=== PATIENT | female | born 1970 | race Caucasian/White ===

== ENCOUNTER 2019-05-16 09:31 | Emergency (ER) | payer OTHER, SELFPAY ==
[2019-05-16 09:33] VITALS: BP 158/105; PULSE 68; RESP 14; TEMP 36.8; O2SAT 98; BMI 33.3
--- NOTE | 2019-05-16 09:48 | CT_ITS ---
STUDY: CT ABDOMEN AND PELVIS WITHOUT CONTRAST REASON FOR EXAM: Female, 48 years old. Left flank pain RADIATION DOSAGE (If Supplied By Facility): CTDIvol = ( 17.68 ) mGy, DLP = ( 910.03 ) mGycm TECHNIQUE: Transaxial images were obtained from the dome of the diaphragm to the symphysis pubis without oral contrast, and without intravenous contrast. Sagittal and coronal images were reconstructed. Individualized dose optimization techniques were used for this CT. COMPARISON: None. FINDINGS: The visualized lung bases are unremarkable. The visualized portions of the heart are within normal limits. Normal liver. There is non-visualization of the gallbladder, which may be secondary to either contraction or a prior cholecystectomy. Normal spleen. Normal pancreas. Normal bilateral adrenal glands. There is a 2 mm stone in the inferior pole of the right kidney there is no evidence of hydronephrosis. The stone in the lower pole of the left kidney measuring 6.6 x 5.1 mm. There is mild left hydronephrosis. There is mild prominence of the proximal and mid ureter with minimal stranding. There is a stone within the distal left ureter at the ureterovesicular junction measuring 4.5 x 5.1 mm. Normal visualized stomach. There multiple mildly distended loops of small bowel. Normal colon. The appendix is visualized and appears normal. Normal abdominal aorta. Normal inferior vena cava. Normal retroperitoneum. Normal urinary bladder. There is a visualized right side tubal ligation clip. There is a diastases of the rectus muscle and atrophy. There is a small fatty umbilical hernia. There are diffuse degenerative changes of the visualized lumbar spine. CT/Abdomen/Pelvis without Cont IMPRESSION: 0.5 x 5.1 mm stone distal left ureter at the ureter vesicular junction. Mild left hydronephrosis. Bilateral renal stones. No evidence of right-sided hydronephrosis Status post cholecystectomy Mild small bowel ileus. Post right side tubal ligation. Electronically Signed: Esha Bueno MD at 10:59 EDT Tel , Service support ,
--- NOTE | 2019-05-16 09:49 | ED.VIS.GEN ---
History of Present Illness Chief Complaint: Flank Pain Informant: Patient Onset: Today Context: Gradual Onset Timing: Waxes and wanes Current Severity: Mild Maximum Severity: Moderate Narrative: Patient presents with left flank/left lower back pain that started this morning. Pain became so severe she did have nausea and vomiting at home. She has not noted dysuria. She denies blood with her bowel movements. She has been lifting more than normal recently, but does not member injuring her back. Past Medical History - Allergies and Home Meds Allergies/Adverse Reactions: Allergies azithromycin Allergy (Verified 05/16/19 09:33) Other strawberry Adverse Reaction (Verified 05/16/19 09:33) Other Primary Care Physician: Rafael Pedraza MD [NON-STAFF] - Surgical History: cholecystectomy, - - Tubal ligation Lives: With Family Smoking Status: Never smoker Review of Systems General: Denies: Chills, Fever Eyes: Denies: Visual changes - bilaterally ENT: Denies: Bilateral ear pain Cardiovascular: Denies: Chest pain Respiratory: Denies: Dyspnea Gastrointestinal: Reports: Abdominal pain, Nausea, Vomiting Genitourinary: Denies: Dysuria, Hematuria Musculoskeletal: Reports: Back pain Neurological: Denies: Headache Endocrine: Denies: Polyuria, Polydipsia Hematologic: Denies: Easy bruising Allergy: Denies: Uticaria Physical Exam Vital Signs/Narrative: Vital Signs Temp Pulse Resp BP Pulse Ox 05/16/19 09:33 98.2 F 68 14 158/105 H 98 Inital Vital Signs reviewed: Yes General: Well nourished, Well developed Head: Normocephalic ENT: Moist mucous membranes Cardiovascular: Regular rate, Regular rhythm Respiratory: No distress, CTA bilaterally Abdomen: Soft, Nontender, Hypoactive bowel sounds Back: - - Tenderness in the left lower lumbar paraspinal muscles. Extremities: Nontender, No edema Skin: Normal color Neurological: Alert, Oriented x3 Psychological: Normal affect Diagnostic/Tx/Re-eval Impressions Abdomen/Pelvis CT 05/16/19 09:48 IMPRESSION: 0.5 x 5.1 mm stone distal left ureter at the ureter vesicular junction. Mild left hydronephrosis. Bilateral renal stones. No evidence of right-sided hydronephrosis Status post cholecystectomy Mild small bowel ileus. Post right side tubal ligation. Electronically Signed: Esha Bueno MD at 10:59 EDT Tel , Service support , 05/16/19 09:48 Abdomen/Pelvis without Cont [CT] Stat Laboratory Results 05/16/19 05/16/19 05/16/19 09:06 10:10 10:10 WBC 7.9 RBC 4.47 Hgb 13.6 Hct 40.5 MCV 90.6 MCH 30.4 MCHC 33.6 RDW Std Deviation 38.5 RDW Coeff of Jax 11.7 Plt Count 275 MPV 9.9 Immature Gran % (Auto) 0.400 Neut % (Auto) 73.9 H Lymph % (Auto) 14.8 L [place] % (Auto) 8.0 Eos % (Auto) 2.5 Baso % (Auto) 0.4 Absolute Neuts (auto) 5.9 Absolute Lymphs (auto) 1.17 Nucleated RBC % 0 Sodium 137 Potassium 4.1 Chloride 103 Carbon Dioxide 28.0 Anion Gap 6 BUN 14 Creatinine 0.99 Estim Creat Clear Calc 65.76 Est GFR (MDRD) Af Amer 78 Est GFR (MDRD) Non-Af 64 BUN/Creatinine Ratio 14.2 Glucose 184 H Calcium 8.9 Serum , Qual Urine Color Yellow Urine Clarity Cloudy Urine pH 5.0 Ur Specific [place] 1.025 Urine Protein 30 H Urine Glucose (UA) Normal Urine Ketones 5 H Urine Occult Blood 250 H Urine Nitrite Negative Urine Bilirubin 1 H Urine Urobilinogen Normal Ur Leukocyte Esterase 25 H Urine RBC 25-50 SEEN Urine WBC 0-5 SEEN Ur Squamous Epith Cells 0-5 SEEN Urine Bacteria 2+ Urine Mucus 0 SEEN Urine Yeast 1+ 05/16/19 10:10 WBC RBC Hgb Hct MCV MCH MCHC RDW Std Deviation RDW Coeff of Jax Plt Count MPV Immature Gran % (Auto) Neut % (Auto) Lymph % (Auto) [place] % (Auto) Eos % (Auto) Baso % (Auto) Absolute Neuts (auto) Absolute Lymphs (auto) Nucleated RBC % Sodium Potassium Chloride Carbon Dioxide Anion Gap BUN Creatinine Estim Creat Clear Calc Est GFR (MDRD) Af Amer Est GFR (MDRD) Non-Af BUN/Creatinine Ratio Glucose Calcium Serum , Qual NEGATIVE Urine Color Urine Clarity Urine pH Ur Specific [place] Urine Protein Urine Glucose (UA) Urine Ketones Urine Occult Blood Urine Nitrite Urine Bilirubin Urine Urobilinogen Ur Leukocyte Esterase Urine RBC Urine WBC Ur Squamous Epith Cells Urine Bacteria Urine Mucus Urine Yeast - Medical Decision Making Patient was given Toradol, morphine, Zofran, and IV fluids. On repeat evaluation she is improved but states her pain is starting to return. Test results were discussed with her. I do think that the kidney stone will pass as it is very distal and oblong in shape. She will be treated with Toradol, Percocet, Zofran, and Flomax. She is given referral to urology for follow-up. If she worsens at all throughout the weekend she is to return here for repeat evaluation. ED Disposition - Plan for ED Patient: Disposition: Home or Assisted Living Diagnosis: Left ureteral stone Instructions: KIDNEY STONE w/ Colic Prescriptions: Tamsulosin HCl [Flomax] 0.4 mg PO DAILY #7 capsule Oxycodone HCl/Acetaminophen [Percocet 5/325] 1 tablet PO Q6H PRN PRN 3 Days #12 tablet PRN Reason: Pain Ketorolac [Toradol] 10 mg PO Q6H PRN #14 tablet PRN Reason: Pain Ondansetron [Zofran Odt] 4 mg PO Q8H PRN PRN #10 tablet PRN Reason: Nausea Referrals: Rafael Pedraza MD [NON-STAFF] - Rayray Cooper MD [STAFF PHYSICIAN] - 3-5 Days if not improving
[2019-05-16] MEDS: Morphine 4 MG/ML Syringe IV ×2 (10:18→12:17)
[2019-05-16] MEDS: 0.9% Normal Saline 1,000 ML 250 ML IV (10:19)
[2019-05-16] MEDS: Ketorolac 30 MG/ML Syringe IV (10:19)
[2019-05-16] MEDS: Ondansetron 4 MG/2 ML Vial IV ×2 (10:19→12:17)
[2019-05-16 10:21] LABS: Absolute Lymphocyte Count 1.17 X10^3/uL (0.83-4.51); Absolute Neutrophil Count 5.9 X10^3/uL (2.0-7.7); Basophil# 0.03 X10^3/uL; Basophil% 0.4 % (0-1); Eosinophils% 2.5 % (0-5); Hematocrit 40.5 % (37-47); Hemoglobin 13.6 g/dL (12.0-15.0); Lymphocyte # 1.17 X10^3/ul (4.0); Lymphocyte % 14.8 % (19-41); Mean Corp Hgb Conc 33.6 g/dL (32-36); Mean Corpuscular Hgb 30.4 pg (27.0-32.0); Mean Corpuscular Volume 90.6 fL (81-99); Mean Platelet Vol. 9.9 fl (6.2-12.0); Monocyte# 0.63 X10^3/uL; NRBC Flagged by Analyzer 0 % (0-5); Neutrophil # 5.85 X10^3/uL (2.7-7.7); Neutrophil % 73.9 % (47-70); Platelet Count 275 K/mm3 (150-450); RBC Distribution Width CV 11.7 % (11.6-14.6); RBC Distribution Width SD 38.5 fl (35.1-43.9); Red Blood Count 4.47 M/mm3 (4.2-5.4); White Blood Count 7.9 K/mm3 (4.4-11.0)
[2019-05-16 10:32] LABS: Mucous, Urine 0 SEEN /hpf (<or=2+)
[2019-05-16 10:36] LABS: Anion Gap 6 (5-15); BUN 14 mg/dL (7-18); BUN/Creat Ratio 14.2 RATIO (10-20); Calcium,Total 8.9 mg/dL (8.5-10.1); Chloride 103 mmol/L (98-107); Creatinine, Serum 0.99 mg/dL (0.55-1.02); EST Glomerular Filtration Rate 64 mL/min (>60); Est Glom Filt Rate - Afr Amer 78 mL/min (>60); Estimated Creatinine Clearance 65.76 ml/min; Glucose 184 mg/dL (74-106); Potassium 4.1 mmol/L (3.5-5.1); Sodium Level 137 mmol/L (136-145)
[2019-05-16 10:42] LABS: Color, Urine Yellow (Yellow); Glucose, Dipstick Normal (Normal); Ketone-Dipstick 5 mg/dl (Negative); Leukocyte Esterase-Dipstick 25 /ul (Negative); Nitrite-Dipstick Negative (Negative); Occult Blood-Urine 250 /ul (Negative); Protein-Dipstick 30 mg/dl (Negative); Specific Gravity, Urine 1.025 (1.002-1.030); Urine Clarity Cloudy (Clear); Urine Urobilinogen Normal (Normal)
[2019-05-16 10:52] LABS: Bacteria 2+ /hpf (None Seen); Red Blood Cells-Urine 25-50 SEEN /hpf (0-5); Squamous Epithelial Cells - UA 0-5 SEEN /hpf (5-10); Urine Bilirubin Dipstick 1 mg/dL (Negative); White Blood Cells 0-5 SEEN /hpf (0-5); Yeast-Urine 1+ /hpf (None Seen)
[2019-05-16 10:59] LABS: Internal QC Validated? YES +Cl - CLEAR BKGD
[2019-05-16 11:00] LABS: Pregnancy, Serum, hCG Quali. NEGATIVE Negative
== END 2019-05-16 12:42 | disposition home or self-care (01) ==
PROVIDERS: Emergency Provider Emergency Medicine; Family Provider Family Medicine; PCP Family Medicine
DX: N13.2 Hydronephrosis with renal and ureteral calculous obstruction (principal); K56.7 Ileus, unspecified; Z90.49 Acquired absence of other specified parts of digestive tract
CPT/HCPCS: 74176; 80048; 81001; 84703; 85025; 96361; 96374; 96375; 96376; 99284; J7030; A4216; J2405